=== PATIENT | female | born 1980 | race American Indian/Alaskan Native ===

== ENCOUNTER 2016-09-05 16:30 | Outpatient (CLI) | payer MEDICAID ==
--- NOTE | 2016-09-06 08:47 | Magnetic Resonance Report ---
MRI BRAIN WITH/WITHOUT CONTRAST: History: Elevated prolactin levels, prolactinoma. Technique: Multiple T1 and T2 weighted images were obtained in multiple planes. Axial diffusion and gradient imaging was performed. Post contrast T1 images in two planes were obtained following IV gadolinium. Findings: The brain parenchyma signal intensity and its harper-white interface are normal on all sequences. No abnormal parenchymal signal. No diffusion restriction, hemorrhage, mass effect or extra-axial fluid collection. Ventricular size is normal and symmetric. The basal cisterns are clear. The brainstem and cerebellar hemispheres are within normal limits. The fourth ventricle is midline. The paranasal sinuses and mastoid air cells are well aerated. Normal flow voids are identified in the appropriate vessels at the [place]. No abnormal enhancement is identified following IV gadolinium. Thin slice collimation images through the sella turcica demonstrate no evidence for microadenoma. Impression: Unremarkable MRI brain with and without contrast. No pituitary abnormality is detected.
== END 2016-09-05 16:31 | disposition home or self-care (01) ==
LOC: MRI 16:30
PROVIDERS: ATTEND Internal Medicine
DX: E22.1 Hyperprolactinemia (principal); D35.2 Benign neoplasm of pituitary gland
CPT/HCPCS: 70553; A9577